=== PATIENT | female | born 1940 | race Caucasian/White ===

== ENCOUNTER 2021-12-30 10:04 | Day surgery (SDC) | payer OTHER ==
[2021-12-25 17:27] VITALS: BMI 27.9
[~2021-12-30 10:04] MED LIST: TROPICAMIDE 1% OPHTH SOLN 15 ML BOTTLE OS SCH
[2021-12-30] MEDS ORDERED: KETOROLAC TROMETHAMINE 0.5% EYE DROP 1 DROP DROPS ONE (10:21)
[2021-12-30] MEDS ORDERED: CYCLOPENTOLATE HCL 1% OPHTH SOLN 2 ML BOTTLE ONE (10:21)
[2021-12-30] MEDS ORDERED: PHENYLEPHRINE 2.5% OPHTH SOLN 15 ML BOTTLE ONE (10:21)
[2021-12-30] MEDS ORDERED: OFLOXACIN 0.3% OPHTHALMIC SOLUTION 5 ML BOTTLE ONE (10:21)
[2021-12-30] MEDS ORDERED: BETAXOLOL HCL 0.25% OPHTHALMIC 10 ML DROPSBTL ONE (10:40)
[2021-12-30] MEDS ORDERED: EPI-SHUGARCAINE (EPINEPHRINE 0.025% & LIDOCAINE-PF 0.75%) 4ML ONE (10:40)
[2021-12-30] MEDS ORDERED: BACITRACIN/POLYMYXIN OPH OINT 3.5 GM TUBE ONE (10:40)
[2021-12-30] MEDS ORDERED: POVIDONE-IODINE 5% OPHTHALMIC PREP 30 ML SOLUTION ONE (10:40)
[2021-12-30] MEDS ORDERED: BSS (NA/CA/MG/K) BALANCED SALT SOLUTION OPHTH SOLN 15 ML BOTTLE ONE (10:40)
[2021-12-30] MEDS ORDERED: TETRACAINE 0.5% OPHTH SOLN 2 ML BOTTLE ONE (10:40)
[2021-12-30] MEDS ORDERED: NEO/POLYMYX B SULF/DEXAMETH OPHTHALMIC 5ML BOTTLE ONE (10:41)
[2021-12-30] MEDS: PHENYLEPHRINE 2.5% OPHTH SOLN 15 ML BOTTLE OS SCH ×3 (10:45→10:55)
[2021-12-30] MEDS: KETOROLAC TROMETHAMINE 0.5% EYE DROP 1 DROP DROPS OS SCH ×3 (10:45→10:55)
[2021-12-30] MEDS: CYCLOPENTOLATE HCL 1% OPHTH SOLN 2 ML BOTTLE OS SCH ×3 (10:45→10:55)
[2021-12-30] MEDS: OFLOXACIN 0.3% OPHTHALMIC SOLUTION 5 ML BOTTLE OS SCH ×3 (10:45→10:55)
[2021-12-30] MEDS ORDERED: MIDAZOLAM HCL 2 MG/2 ML SINGLE DOSE VIAL ONE (11:39)
[2021-12-30] MEDS ORDERED: ACETAMINOPHEN 325 MG TABLET (FP) PO PRN (12:12)
[2021-12-30 12:28] VITALS: TEMP 97
[2021-12-30 12:40] VITALS: BP 140/70; PULSE 70
== END 2021-12-30 12:58 | disposition home or self-care (01) ==
LOC: FASU 10:04
PROVIDERS: ATTEND Ophthalmology
PROC: 08RK3JZ Replacement of Left Lens with Synthetic Substitute, Percutaneous Approach (ICD-10-PCS; principal; 2021-12-30 11:48)
DX: H25.12 Age-related nuclear cataract, left eye (principal)
CPT/HCPCS: 66984; V2632